=== PATIENT | male | born 1965 | race Caucasian/White ===

== ENCOUNTER 2021-01-03 05:36 | Emergency (ER) | payer SELFPAY ==
--- NOTE | ~2021-01-03 | XR_ITS ---
EXAMINATION: XR RIBS, LEFT CLINICAL INFORMATION: Left rib pain status post fall. COMPARISON: None TECHNIQUE: 3 views of the left ribs were obtained. A skin marker overlies the inferolateral left ribs. FINDINGS: Lungs are clear. No consolidation, pneumothorax, or pleural effusion. The cardiomediastinal silhouette and pulmonary vasculature are normal. There are nondisplaced oblique fractures of the anterolateral left seventh and eighth ribs. Probable old healed left lateral 11th rib fracture is noted. XR/XR ribs LT min 3V w CXR1V IMPRESSION: 1. Acute, nondisplaced oblique fractures of the anterolateral left seventh and eighth ribs. Additional, nondisplaced adjacent rib fractures cannot be excluded.
[2021-01-03 06:00] VITALS: BP 150/107; PULSE 89; RESP 18; TEMP 36.6; O2SAT 98; BMI 29.5
--- NOTE | 2021-01-03 07:30 | ED_ITS ---
HPI - Fall General Chief Complaint: Fall Stated Complaint: Fall/Rib pain Time Seen by Provider: 01/03/21 07:30 History of Present Illness HPI Narrative: Patient 55-year-old male presents today with having chest pain. Over the left lower rib area. Patient accidentally fell. The pain started right after. Patient slipped. Not on any blood thinners. Pain worsened with movement. No coughing or congestion or respiratory symptoms. No diaphoresis. No focal weakness. Related Data Previous Rx's Medication Instructions Recorded ibuprofen 400 mg tablet 400 mg PO Q6H PRN #20 tab 01/03/21 oxycodone-acetaminophen 5 mg-325 1 tab PO Q8H PRN #10 tab 01/03/21 mg tablet (Percocet) Allergies Allergy/AdvReac Type Severity Reaction Status Date / Time No Known Allergies Allergy Unverified 11/14/19 14:47 Review of Systems Review of Systems: Positive pain to the left lower rib No chest pain or shortness of breath No cough no congestion or upper respiratory symptoms Yes all other systems are reviewed and are negative [facility] Past Medical History Attestation statement: The following information was validated with the patient. Social History Social History Advance Directives: No Physical Exam Vital Signs: Vital Signs: Last Vital Signs Temp 97.9 F 01/03/21 06:00 Pulse 89 01/03/21 06:00 Resp 18 01/03/21 06:00 BP 150/107 H 01/03/21 06:00 Pulse Ox 98 01/03/21 06:00 Body Mass Index 29.5 Appearance: Alert. Oriented X3. No acute distress. Eyes: Pupils equal, round and reactive to light. ENT: Pharynx normal. Neck: Normal inspection. Neck supple. No lymph nodes noted. No crepitus CVS: Normal heart rate and rhythm. Pulses normal. Normal S1 and S2 Respiratory: No respiratory distress. Breath sounds normal. No Wheezing. No rales. Positive left lower rib tenderness there is no crepitus elicited on palpation Abdomen: Soft and nontender. No rigidity. No distention. good BS x4 Skin: Skin warm and dry. Normal skin color. Normal skin turgor. Extremities: No lower extremity edema. Neurovascular intact to all extremities. No Lacerations. No Rash Neuro: Oriented X 3. No motor deficit. No sensory deficit. Moving all extermities. No slurred speech MDM - Fall MDM Narrative Medical decision making narrative: X-ray showed 2 rib fractures. O2 sat 98% on room air. Pain is controlled with pain medication. Will give patient incentive spirometry. Pain medication as needed. Follow up closely on an outpatient basis. Discharge Plan Discharge Clinical Impression: Closed rib fracture Patient Disposition: Home, Self-Care Instructions: Rib Fracture (ED) Prescriptions: New ibuprofen 400 mg tablet 400 mg PO Q6H PRN (Reason: pain) Qty: 20 RF: 0 oxycodone-acetaminophen [Percocet] 5-325 mg tablet 1 tab PO Q8H PRN (Reason: pain) Qty: 10 RF: 0 Referrals: Physician,Unknown J [Primary Care Provider] - 2 days
[2021-01-03] MEDS: HYDROmorphone HCl 2 MG TABLET PO (08:30)
[2021-01-03 08:34] VITALS: BP 153/101; PULSE 80; RESP 20; O2SAT 97
== END 2021-01-03 08:46 | disposition home or self-care (01) ==
PROVIDERS: Emergency Provider Emergency Medicine Emergency Medical Services
DX: S22.42XA Multiple fractures of ribs, left side, initial encounter for closed fracture (principal); W01.0XXA Fall on same level from slipping, tripping and stumbling without subsequent striking against object, initial encounter; Y93.9 Activity, unspecified; Y92.9 Unspecified place or not applicable; Y99.9 Unspecified external cause status
CPT/HCPCS: 71101; 99283; 99284

== ENCOUNTER 2022-08-18 22:29 | Emergency (ER) | payer BC, OTHER, SELFPAY ==
[2022-08-18 22:33] VITALS: BP 160/110; PULSE 98; O2SAT 97
[2022-08-18 22:40] VITALS: BP 135/87; PULSE 89; RESP 20; O2SAT 100; BMI 22.4
[2022-08-18 23:19] LABS: Appearance Urine Clear; Color Urine Yellow; Glucose Urine UA Negative (Negative); Leukocyte Esterase Urine Negative (Negative); Nitrite Urine Negative (Negative); PH 5.5 (5.0-9.0); Urine Blood Negative (Negative); Urine Ketones Negative (Negative); Urine Protein Negative (Neg-Trace)
[2022-08-19 00:34] VITALS: BP 101/66; PULSE 74; RESP 17; TEMP 36.9; O2SAT 96
--- NOTE | 2022-08-19 01:04 | ED_ITS ---
HPI - Alcohol General Chief Complaint: ETOH/Substance Use Stated Complaint: ETOH Time Seen by Provider: 08/19/22 01:03 Source: patient Mode of arrival: EMS Limitations: other (Alcohol intoxication) History of Present Illness HPI narrative: 57-year-old male who was brought to the emergency department for evaluation of acute alcohol intoxication. At the time my evaluation the patient was intoxicated and was difficult to arouse. When he woke up he was agitated and fell back asleep. According to review coordinator notes the patient was yelling for help in his backyard he did report to the paramedics that he drink 1 L of vodka. He denied using drugs, he denied being suicidal or homicidal. Related Data Previous Rx's Medication Instructions Recorded ibuprofen 400 mg tablet 400 mg PO Q6H PRN pain #20 tabs 01/03/21 oxycodone-acetaminophen 5 mg-325 1 tab PO Q8H PRN pain #10 tabs 01/03/21 mg tablet (Percocet) Allergies Allergy/AdvReac Type Severity Reaction Status Date / Time No Known Allergies Allergy Verified 08/18/22 22:39 Review of Systems Review of Systems: Yes all other systems are reviewed and are negative [facility] Past Medical History [facility] Narrative: Past medical history: Alcohol use disorder, rib fractures Social History Social History Alcohol intake: current Alcohol intake frequency: 3 or more drinks per day Alcohol type: beer Smoked in Last 30 Days: Yes Use of substances other than those prescribed or required for medical reasons: No Advance Directives: No Advance Directives Information Provided: Yes Physical Exam ED Vital Signs: Vital Signs - 24 hr 08/18/22 22:40 08/19/22 00:34 08/19/22 03:52 Temperature 98.4 F 98.7 F Pulse Rate 89 74 71 Respiratory Rate 20 17 17 Blood Pressure 135/87 101/66 108/69 Pulse Oximetry 100 96 95 Oxygen Delivery Method Room Air Room Air Room Air 08/19/22 06:33 Temperature 98.1 F Pulse Rate 78 Respiratory Rate 17 Blood Pressure 129/80 Pulse Oximetry 95 Oxygen Delivery Method Room Air BMI result Body Mass Index 22.4 Vital signs were stable General: Acutely intoxicated male patient, somnolent but arousable HEENT: Head was normal cephalic atraumatic, pupils equal round reactive light, sclera contact however normal, mouth revealed moist membranes, strong odor of alcohol on his breath Neck: Supple, nontender Chest: No chest wall tenderness Lungs: Clear to auscultation breath sounds symmetric bilaterally Heart: Regular rate rhythm, normal S1-S2 Abdomen: Soft, nontender, nondistended Back: No CVA tenderness Extremities: No evidence of trauma Neuro: Nonfocal Medical Decision Making Medical Decision Making MDM Narrative: 57-year-old male who presents emergency department for evaluation of alcohol intoxication. Patient was somnolent but arousable was not able to give a history. His physical examination was consistent with acute alcohol i ntoxication. 0108: Start physician observation: The patient will be kept in the emergency department until he is sober and is able to walk without any difficulty. 0729: End physician observation: The patient is awake and alert. He states that he drink too much in this is happened to him before in the past. He states he is not interested in talking to a swimming coach or instructor. He has no complaints. Patient's examination was unremarkable. Patient will be discharged home. Differential Diagnosis Differential diagnosis includes was not limited to acute alcohol intoxication, acute drug use, electrolyte abnormality, closed head injury, Lab Data Labs: Lab Results 08/18/22 Range/Units 23:11 Urine Color Yellow Urine Appearance Clear Urine pH 5.5 (5.0-9.0) Ur Specific [place] 1.010 (1.005-1.025) Urine Protein Negative (Neg-Trace) mg/dL Urine Glucose (UA) Negative (Negative) mg/dL Urine Ketones Negative (Negative) mg/dL Urine Blood Negative (Negative) Urine Nitrite Negative (Negative) Ur Leukocyte Esterase Negative (Negative) Discharge Plan Discharge Clinical Impression: Alcoholic intoxication Patient Disposition: Home, Self-Care Instructions: Alcohol Intoxication (ED) Additional Instructions: Continue taking medications as prescribed by your providers. You should consider getting help with your alcohol use disorder Follow-up with your doctor in 2 days. Please return to the emergency department if your symptoms get worse or if you develop any symptoms that are concerning to you. Prescriptions: No Action ibuprofen 400 mg tablet 400 mg PO Q6H PRN (Reason: pain) Qty: 20 0RF oxycodone-acetaminophen [Percocet] 5-325 mg tablet 1 tab PO Q8H PRN (Reason: pain) Qty: 10 0RF
[2022-08-19 03:52] VITALS: BP 108/69; PULSE 71; RESP 17; TEMP 37.1; O2SAT 95
[2022-08-19 06:33] VITALS: BP 129/80; PULSE 78; RESP 17; TEMP 36.7; O2SAT 95
--- NOTE | 2022-08-19 06:52 | PC.NURSE ---
Resumed care of patient, he is currently resting in bed, all needs met. All safety measures in place at this time
--- NOTE | 2022-08-19 07:43 | PC.NURSE ---
Pt is a/ox4 this am, at this time has sobered up. Pt states he has multiple resources at home, but at this time is not interested. Education given. Pt reports he is going to take the bus home
== END 2022-08-19 07:44 | disposition home or self-care (01) ==
PROVIDERS: Emergency Provider Emergency Medicine Emergency Medical Services
DX: F10.129 Alcohol abuse with intoxication, unspecified (principal); Y90.9 Presence of alcohol in blood, level not specified; Z79.899 Other long term (current) drug therapy
CPT/HCPCS: 81003; 99284

== ENCOUNTER 2022-08-24 19:56 | Emergency (ER) | payer BC, SELFPAY ==
[2022-08-24 19:58] VITALS: BP 140/100; PULSE 88; O2SAT 100
[2022-08-24 20:01] VITALS: BP 121/74; PULSE 80; RESP 18; TEMP 36.2; O2SAT 98; BMI 23.1
--- NOTE | 2022-08-24 20:20 | ED_ITS ---
HPI - Alcohol General Chief Complaint: ETOH/Substance Use Stated Complaint: etoh Time Seen by Provider: 08/24/22 20:10 Source: patient and EMS Mode of arrival: EMS Limitations: no limitations History of Present Illness HPI narrative: Patient comes to the emergency room complaining of alcohol intoxication. According to EMS, the patient was picked up from his home. Patient has no electricity or running water in his apartment. Patient tearful on arrival, states that he has been drinking a lot the last few days, denies suicidal or homicidal ideation. Patient states that he has been feeling depressed, states t hat his of 40 years walked out on him in October of last year. Related Data Previous Rx's Medication Instructions Recorded ibuprofen 400 mg tablet 400 mg PO Q6H PRN pain #20 tabs 01/03/21 oxycodone-acetaminophen 5 mg-325 1 tab PO Q8H PRN pain #10 tabs 01/03/21 mg tablet (Percocet) Allergies Allergy/AdvReac Type Severity Reaction Status Date / Time No Known Allergies Allergy Verified 08/18/22 22:39 Review of Systems Review of Systems: Constitutional : No Weight loss, No Fever, No Chills, No Night Sweats, No Fatigue, No Malaise ENT/Mouth : No Hearing loss, No Ear Pain, No Nasal Congestion, No Sinus Pain, No Hoarseness, No sore throat, No Rhinorrhea, No Swallowing Difficulty Eyes: No Eye Pain, No Swelling, No Redness, No Foreign Body, No Discharge, No Vision Changes Cardiovascular : No Chest Pain, No SOB, No Dyspnea on Exertion, No Orthopnea, No Edema, No Palpitations Respiratory : No Cough, No Sputum, No Wheezing, No Smoke Exposure, No Dyspnea Gastrointestinal : No Nausea, No Vomiting, No Diarrhea, No Constipation, No abdominal Pain, No Hematochezia, No Melena Genitourinary : no irregular bleeding, No Dysuria, No Urinary Frequency, No Hematuria, No Urinary Incontinence, No Urgency, No Flank Pain, No Urinary Flow Changes, No Hesitancy Musculoskeletal : No joint pain, No Myalgias, No Joint Swelling Skin : No Skin Lesions, No rash Neuro : No Weakness, No Numbness, No Paresthesias, No Loss of Consciousness, No Dizziness, No Headache Psych : Complaining of anxiety, depression, no suicidal or homicidal ideation Heme/Lymph: No Bruising, No Bleeding,No Lymphadenopathy Endocrine : No Polyuria, No Polydipsia, No Temperature Intolerance [facility] Past Medical History Medical History Alcohol abuse Social History Social History Alcohol intake: current Alcohol intake frequency: 3 or more drinks per day Alcohol type: beer Physical Exam ED Vital Signs: Vital Signs - 24 hr 08/24/22 20:01 Temperature 97.2 F Pulse Rate 80 Respiratory Rate 18 Blood Pressure 121/74 Pulse Oximetry 98 Oxygen Delivery Method Room Air BMI result Body Mass Index 23.1 Const Other: Appearance: Alert. Oriented X3. No acute distress. Eyes: Pupils equal, round and reactive to light. ENT: Pharynx normal. Neck: Normal inspection. Neck supple. No lymph nodes noted. No crepitus CVS: Normal heart rate and rhythm. Pulses normal. Normal S1 and S2 Respiratory: No respiratory distress. Breath sounds normal. No Wheezing. No ra les Abdomen: Soft and nontender. No rigidity. No distention. Skin: Skin warm and dry. Normal skin color. Normal skin turgor. Extremities: No lower extremity edema. No Lacerations. No Rash Neuro: Oriented X 3. No motor deficit. No sensory deficit. Moving all extremities. No slurred speech. CN 2 through 12 grossly intact Psych: calm, cooperative, teary Course Course Course Narrative: -patient declining any workup, declined to talk to Behavioral Health. -patient is not homicidal or suicidal. Patient is not on a Section 12 -waiting for the patient to be sober and then to be discharged home, metabolized to freedom. Medical Decision Making Medical Decision Making [facility] Narrative: -once patient is sober, patient may be discharged home Differential Diagnosis Differential Diagnoses: The differential diagnosis associated with the presentation includes (Alcohol intoxication, drug abuse, depression, anxiety) Discharge Plan Discharge Clinical Impression: Alcoholic intoxication Patient Disposition: Still a Patient Prescriptions: No Action ibuprofen 400 mg tablet 400 mg PO Q6H PRN (Reason: pain) Qty: 20 0RF oxycodone-acetaminophen [Percocet] 5-325 mg tablet 1 tab PO Q8H PRN (Reason: pain) Qty: 10 0RF
--- NOTE | 2022-08-24 20:47 | PC.NURSE ---
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 pt denies SI/HI, reports that he has a daughter who lives in [facility], son in [place] and brother Mike who he hasn't spoke to for a while. pt has no means of transportation home.
--- NOTE | 2022-08-24 22:07 | PC.NURSE ---
pt sitting in bed eating pudding, vss, requesting nicotine patch, provider aware.
[2022-08-24 22:08] VITALS: BP 104/71; PULSE 90; RESP 18; O2SAT 96
[2022-08-24] MEDS: Nicotine 21 MG PATCH.TD24 TRANSDERMA (22:15)
[2022-08-25 07:50] VITALS: BP 124/83; PULSE 75; RESP 18; TEMP 35.7; O2SAT 99
== END 2022-08-25 08:07 | disposition home or self-care (01) ==
LOC: HO.ED 20:27
PROVIDERS: Emergency Provider Emergency Medicine
DX: F10.129 Alcohol abuse with intoxication, unspecified (principal); Y90.9 Presence of alcohol in blood, level not specified; Z79.899 Other long term (current) drug therapy
CPT/HCPCS: 99283; 99284

== ENCOUNTER 2023-01-14 09:39 | Outpatient (REF) | payer MEDICAID, SELFPAY ==
[2023-01-14 11:07] LABS: MANUAL DIFF FLAG NO
[2023-01-14 11:14] LABS: Basophils Absolute Auto 0.1 X10*3/uL (0.0-0.2); Basophils Percent Auto 1.2 % (0-2); Eosinophils Absolute Auto 0.1 X10*3/uL (0.0-0.4); Hematocrit 41.8 % (42.0-52.0); Imm Gran Abs Auto 0.01 X10*3/uL (0.00-0.03); Imm Gran Pct Auto 0.2 % (0.0-0.4); Lymphocytes Absolute Auto 1.3 X10*3/uL (1.2-4.9); Lymphocytes Percent Auto 25.2 % (20-40); Mean Corpuscular HGB Conc 33.5 g/dl (31.0-36.0); Mean Corpuscular Hemoglobin 31.3 pg (27.0-33.0); Mean Corpuscular Volume 93.3 fL (80.0-98.0); Mean Platelet Volume 9.9 fL (9.4-12.4); Monocytes Absolute Auto 0.7 X10*3/uL (0.1-1.2); Monocytes Percent Auto 13.1 % (2-11); Neutrophils Absolute Auto 2.9 x10*3/uL (2.0-8.3); Neutrophils Percent Auto 58.3 % (45-73); Platelet Count 212 X10*3/uL (160-400); Red Blood Count 4.48 X10*6/uL (4.60-5.80); Red Cell Distribution Width 11.3 % (11.0-16.0)
[2023-01-14 11:41] LABS: Alanine Aminotransferase 10 U/L (0-40); Albumin Level 4.4 g/dL (3.5-5.0); Alkaline Phosphatase 61 U/L (39-117); Anion Gap 11 (12-20); Aspartate Amino Transferase 17 U/L (5-37); Bilirubin Total 0.5 mg/dL (0.0-1.0); Blood Urea Nitrogen 14 mg/dL (9-16); Calcium 9.9 mg/dL (8.4-10.2); Carbon Dioxide 27 mmol/L (22-29); Chloride 107 mmol/L (96-108); Cholesterol 139 mg/dL (<200); Estimated Glomerular Filt Rate > 60; Glucose Random 91 mg/dL (60-115); HDL Cholesterol 43 mg/dL (>40); LDL Cholesterol Calculated 86 mg/dL (<100); Potassium 4.6 mmol/L (3.3-5.1); Sodium 140 mmol/L (135-145); Total Protein 7.5 g/dL (6.5-8.0); Triglycerides 53 mg/dL (<150)
[2023-01-14 11:43] LABS: Prostate Specific Antigen Scr 0.84 ng/mL (<0.05-4.0)
== END 2023-01-14 09:40 | disposition home or self-care (01) ==
LOC: HO.HMGCLDS 09:39
PROVIDERS: PCP Internal Medicine; Visit Provider Internal Medicine
DX: Z00.00 Encounter for general adult medical examination without abnormal findings (principal); Z12.5 Encounter for screening for malignant neoplasm of prostate; F10.11 Alcohol abuse, in remission; M23.91 Unspecified internal derangement of right knee; F17.201 Nicotine dependence, unspecified, in remission
CPT/HCPCS: 36415; 80053; 80061; 84153; 85025

== ENCOUNTER 2023-08-01 12:10 | Outpatient (REF) | payer MEDICAID, SELFPAY ==
[2023-08-01 13:55] LABS: C Reactive Protein 0.33 mg/dL (< or = 0.50)
[2023-08-01 14:02] LABS: Rheumatoid Factor < 13.0 IU/mL (<15.0)
[2023-08-01 14:25] LABS: Erythrocyte Sedimentation Rate 57 MM/HR (0-15)
[2023-08-02 18:43] LABS: Streptolysin O Antibody <20 IU/mL (<200)
[2023-08-03 20:03] LABS: Cyclic Citrullinated Peptide <16 UNITS
== END 2023-08-01 12:11 | disposition home or self-care (01) ==
LOC: HO.10HDL 12:10
PROVIDERS: Visit Provider Internal Medicine
DX: J02.0 Streptococcal pharyngitis (principal); M13.0 Polyarthritis, unspecified
CPT/HCPCS: 36415; 85652; 86060; 86140; 86200; 86431

== ENCOUNTER 2024-10-24 13:33 | Outpatient (REF) | payer MEDICAID, SELFPAY ==
--- OUTSIDE RECORDS SUMMARY | 2024-10-24 14:19 | XMS_ITS | Clinical Summary ---
Author Organization [facility] Address [address] [place] [address] Care Team Providers Care Iron Plastic Bullet Maker Name Role Phone Tracy Beard MD Primary Care Provider [phone] Medical History Medical History Date Comments Hx of arthroscopy of right knee 2009 DX:Hx of arthroscopy of right knee Alcohol related seizure (CMS /HCC V24, CMS/HCC V28) DX:Alcohol related seizure ( HCC) Social History Tobacco Use Types Packs/Day Years Used Date Smoking Tobacco: Never Assessed Sex and Gender Information Value Date Recorded Sex Assigned at Not on file Legal Sex Male 8:28 PM EST Gender Identity Not on file Sexual Orientation Not on file Obstetrics History Last Filed Vital Signs Vital Sign Reading Time Taken Comments Blood Pressure - - Pulse - - Temperature - - Respiratory Rate - - Oxygen Saturation - - Inhaled Oxygen Concentration - - Weight 81.6 kg (180 lb) 04/14/2023 9:16 AM EST Height 175.3 cm (5' 9 ) 04/14/2023 9:16 AM EST Body Mass Index 26.58 04/14/2023 9:16 AM EST Plan of Treatment Health Maintenance Due Date Last Done Comments DTaP,Tdap,and Td Vaccines (1 - Tdap) 1986 Hepatitis B Vaccines (1 of 3 - 19+ 3-dose series) 1986 Pneumococcal Vaccine: 50+ Ye ars (1 of 1 - PCV) 2017 Zoster Vaccines (1 of 2) 2017 Cholesterol Screening (Lipid Panel) 03/24/2023 Colorectal Cancer Screening: Colonoscopy 03/24/2023 HIV Screening 03/24/2023 Hepatitis C Screening 03/24/2023 Social Influencers of Health Screening 03/24/2023 COVID-19 Vaccine ( - 2023-2 5 season) 2023 Depression Screening 02/28/2024 Influenza Vaccine (#1) 2024 HIB Vaccines Aged Out No longer eligi ble based on patient's age to complete this topic HPV Vaccines Aged Out No longer eligi ble based on patient's age to complete this topic Hepatitis A Vaccines Aged Out No long er eligible based on patient's age to complete this topic IPV Vaccines Aged Out No longer eligi ble based on patient's age to complete this topic MMR Vaccines Aged Out No longer eligi ble based on patient's age to complete this topic Meningococcal ACWY Vaccine Aged Out N o longer eligible based on patient's age to complete this topic Meningococcal B Vaccine Aged Out No l onger eligible based on patient's age to complete this topic RSV Immunization Patients Un eric 20 months Aged Out No longer eligible b ased on patient's age to complete this topic Varicella Vaccines Aged Out No longer eligible based on patient's age to complete this topic Advance Directives Documents on File Type Date Recorded Patient Access Services Assistant Expl anation Health Care Decision (hx) 08/17/2022 AD [employer] DIRECTIVE Health Care Decision (hx) 08/17/2022 AD [employer]INA DIRECTIVE Health Care Decision (hx) 08/17/2022 AD MEDINA DIRECTIVE Health Care Decision (hx) 08/17/2022 AD MEDINA DIRECTIVE Health Care Decision (hx) 08/17/2022 AD [employer] DIRECTIVE Care Teams Iron Plastic Bullet Maker Relationship Specialty Start Date End Date Tracy Beard MD [address] [place] [address] Dr Harvey, [place] [address] PCP - General 03/23/23
[2024-10-24 16:07] LABS: Alanine Aminotransferase 76 U/L (0-40); Albumin Level 5.0 g/dL (3.5-5.0); Alkaline Phosphatase 75 U/L (39-117); Anion Gap 15 (12-20); Aspartate Amino Transferase 109 U/L (5-37); Blood Urea Nitrogen 17 mg/dL (9-16); Calcium 9.8 mg/dL (8.4-10.2); Carbon Dioxide 24 mmol/L (22-29); Chloride 103 mmol/L (96-108); Estimated Glomerular Filt Rate > 60; Potassium 3.5 mmol/L (3.3-5.1); Sodium 138 mmol/L (135-145); Total Protein 8.2 g/dL (6.5-8.0)
== END 2024-10-24 13:34 | disposition home or self-care (01) ==
LOC: HO.LAB 13:33
PROVIDERS: PCP Internal Medicine; Visit Provider Internal Medicine
DX: Z00.00 Encounter for general adult medical examination without abnormal findings (principal); F17.201 Nicotine dependence, unspecified, in remission; F32.9 Major depressive disorder, single episode, unspecified; N40.0 Benign prostatic hyperplasia without lower urinary tract symptoms; F10.988 Alcohol use, unspecified with other alcohol-induced disorder; M23.203 Derangement of unspecified medial meniscus due to old tear or injury, right knee; Z12.5 Encounter for screening for malignant neoplasm of prostate
CPT/HCPCS: 36415; 80053; 84153

== ENCOUNTER 2024-12-19 08:15 | Outpatient (REF) | payer MEDICAID, SELFPAY ==
--- NOTE | ~2024-12-19 | XR_ITS ---
CLINICAL HISTORY: M25.561 - Pain in right knee 3 view right knee Comparison: None provided Findings: No acute fracture or dislocation is identified. The femorotibial joint space is preserved. Soft tissue structures appear within normal limits. IMPRESSION: Negative radiographic examination of the right knee. This document has been electronically signed by: James Lassiter on 12/20/2024 10:23:13
== END 2024-12-19 08:16 | disposition home or self-care (01) ==
LOC: HO.HOSX 08:15
PROVIDERS: Visit Provider Orthopaedic Surgery
DX: S83.241A Other tear of medial meniscus, current injury, right knee, initial encounter (principal); M25.561 Pain in right knee
CPT/HCPCS: 73562; 99202

== ENCOUNTER 2024-12-19 09:57 | Outpatient (AMB) | payer MEDICAID, SELFPAY ==
--- NOTE | 2024-12-19 10:12 | MHC.OFFVIS ---
Intake Visit Reasons: Right knee pain and giving way Intake Note: John is a 59 year old male who presents with complaints of progressively worsening right knee pain and giving way. The patient describes his pain as sharp in nature. Most of the pain is along the anterior and medial aspects of his knee. His symptoms have gotten worse over the last year in spite of continued non operative treatments. He has tried Tylenol, anti-inflammatory medicines, physical therapy exercises and a home exercise program which gave him minimal relief. He states that his right knee will give out several times per day. Allergies No Known Allergies Allergy (Verified 12/19/24 10:16) Medication List - Last Reviewed 12/19/24 by REKHA Acevedo ibuprofen 400 mg PO Q6H PRN sertraline 50 mg PO DAILY PFSH Medical History Alcohol abuse Social History Alcohol intake: current Alcohol intake frequency: 3 or more drinks per day Alcohol type: beer and hard liquor Physical Exam Const Other: Well-nourished well-developed very friendly male awake alert and oriented x3 in no acute distress Extrem Other: Bilateral lower extremity examination shows good capillary refill, no skin lesions noted, normal sensation light touch Right knee examination shows a minimal effusion, mild crepitus with range of motion, tenderness along his medial joint line, positive Timbo's test, no instability Results Reviewed Results Reviewed: X-rays of the patient's right knee taken today show mild diffuse joint space narrowing, no acute bony abnormalities MRI of the patient's right knee shows mild diffuse degenerative changes as well as a tear of the medial meniscus, no acute bony abnormalities Assessment & Plan Assessment & Plan (1) Tear of medial meniscus of right knee: Code(s): S83.241A - Other tear of medial meniscus, current injury, right knee, initial encounter Category: Medical Plan Mr. Bonilla presents with right knee pain and mechanical symptoms due to a medial meniscus tear. I had a lengthy discussion with the patient regarding the treatment options. At this point he has failed continued non operative treatments. The risks and benefits of right knee arthroscopic surgery were discussed at length with the patient. The patient wishes to proceed with surgery. Surgery will involve right knee arthroscopic partial medial meniscectomy. He will be scheduled for next available date. He will follow up as instructed. Feel free to call me at any time should questions regarding his orthopedic management arise. Thank you very much for asking me to see this very friendly gentleman. I spent 22 minutes in reviewing the patient's records and imaging studies, seeing the patient and documenting in the medical record. Orders: Orders XR knee RT 3V Today M25.561 - Pain in right knee Coding Level of Care Code New Pt Level 3 (09087) Complex EM visit Add On G2211 Diagnoses Tear of medial meniscus of right knee S83.241A
--- OUTSIDE RECORDS SUMMARY | 2024-12-19 11:33 | XMS_ITS | Clinical Summary ---
Author Organization [facility] Address [address] [place] [address] Care Team Providers Care Software Test Engineer Name Role Phone Tracy Beard MD Primary Care Provider [phone] Medical History Medical History Date Comments Hx [...] Health Maintenance Due Date Last Done Comments Colorectal Cancer Screening: Colonoscopy 1967 DTaP,Tdap,and Td Vaccines (1 - Tdap) 1986 Hepatitis B Vaccines (1 of 3 - 19+ 3-dose series) 1986 Pneumococcal Vaccine: 50+ Ye ars (1 of 1 - PCV) 2017 Zoster Vaccines (1 of 2) 2017 Cholesterol Screening (Lipid Panel) 03/24/2023 HIV Screening 03/24/2023 Hepatitis C Screening 03/24/2023 Social Influencers of Health Screening 03/24/2023 Depression Screening 02/28/2024 COVID-19 Vaccine (2023-2 5 season) 2024 Influenza Vaccine (#1) 2024 RSV Immunization Adult Patie nts (1 - 1-dose 75+ series) 2042 HIB Vaccines Aged Out No longer eligi [...] Documents on File Type Date Recorded Patient Drying Oven Attendant Expl anation Health Care Decision (hx) 08/17/2022 AD [employer] DIRECTIVE Health Care Decision (hx) 08/17/2022 AD [employer] DIRECTIVE Health Care Decision (hx) 08/17/2022 AD MEDINA DIRECTIVE Health Care Decision (hx) 08/17/2022 AD MEDINA DIRECTIVE Health Care Decision (hx) 08/17/2022 AD [employer]INA DIRECTIVE Care Teams Software Test Engineer Relationship Specialty Start Date End Date Tracy Beard MD [address] [place] [address] Dr Harvey, [place] [address] PCP - General 03/23/23
== END 2024-12-19 10:32 | disposition home or self-care (01) ==
LOC: HO.HOS 09:57
PROVIDERS: PCP Internal Medicine; Visit Provider Orthopaedic Surgery
DX: S83.241A Other tear of medial meniscus, current injury, right knee, initial encounter (principal)
CPT/HCPCS: 99204

== ENCOUNTER → 2024-12-19 10:05 | Outpatient (BNV) | payer MEDICAID, SELFPAY | PROVIDERS: Visit Provider Radiology Vascular & Interventional Radiology | DX: M25.561 Pain in right knee (principal) | CPT/HCPCS: 73562 ==

== ENCOUNTER 2025-02-14 07:18 | Day surgery (SDC) | payer MEDICAID, SELFPAY ==
--- OUTSIDE RECORDS SUMMARY | 2025-02-10 19:47 | XMS_ITS | Clinical Summary ---
Author Organization [facility] Address [address] [place] [address] Care Team Providers Care Field Service Rep Name Role Phone Tracy Beard MD Primary Care Provider [phone] Medical History Medical History Date Comments Hx [...] on file Sexual Orientation Not on file Last Filed Vital Signs Vital Sign Reading [...] Screening 03/24/2023 Depression Screening 02/28/2024 COVID-19 Vaccine (1 - 2024-2 6 season) 2024 Influenza Vaccine (#1) 2024 RSV [...] Documents on File Type Date Recorded Patient Design Project Manager Expl anation Health Care Decision (hx) 08/17/2022 AD [employer] DIRECTIVE Health Care Decision (hx) 08/17/2022 AD [employer] DIRECTIVE Health Care Decision (hx) 08/17/2022 AD [employer]INA DIRECTIVE Health Care Decision (hx) 08/17/2022 AD [employer]INA DIRECTIVE Health Care Decision (hx) 08/17/2022 AD [employer] DIRECTIVE Care Teams Field Service Rep Relationship Specialty Start Date End Date Tracy Beard MD [address] [place] [address] Dr Harvey, [place] [address] PCP - General 03/23/23
--- OUTSIDE RECORDS SUMMARY | 2025-02-10 19:47 | XMS_ITS | Patient Health Record ---
Author Organization [facility] Address [address] [place] [address] Care Team Providers Care Conveyor Weigher Operator Name Role Phone NO, PCP Primary Care Provider [phone] Constance Vaca Unavailable [phone] Reason For Referral No Information Social History Sex Assigned At : Social History Observation Description Sex Assigned At Male Encounters Encounter Location Date Provider Diagnosis [facility] [address] [place] [address] 11/07/2024 Constance Vaca Plan Of Treatment No Information Insurance Providers Payer Name Payer Address Payer Phone Subscriber Number Group Number Insured Name Patient Relationship to Insured Coverage Start Date Coverage End Date Insurance Pending [address] [place] [id number] Tarun Bonilla Self - patient is the insured
[2025-02-11 08:41] VITALS: BMI 27.3
[2025-02-14 07:50] VITALS: BP 113/79; PULSE 76; RESP 16; TEMP 36.8; O2SAT 96; BMI 26.3
[2025-02-14] MEDS: Lactated Ringers 1,000 ML 100 ML IVCONT (07:52)
[2025-02-14 08:01] LABS: Hematocrit 37.5 % (42.0-52.0); Hemoglobin 13.3 g/dl (14.0-18.0); Mean Corpuscular HGB Conc 35.5 g/dl (31.0-36.0); Mean Corpuscular Hemoglobin 33.5 pg (27.0-33.0); Mean Corpuscular Volume 94.5 fL (80.0-98.0); NRBC Abs Auto 0.000 X10*3/uL (0.0-0.012); NRBC Pct Auto 0.0 /100WBC (0.0-0.2); Platelet Count 172 X10*3/uL (160-400); Red Blood Count 3.97 X10*6/uL (4.60-5.80); White Blood Count 6.3 X10*3/uL (4.8-10.8)
[2025-02-14 08:14] LABS: Alanine Aminotransferase 16 U/L (0-40); Albumin Level 4.7 g/dL (3.5-5.0); Alkaline Phosphatase 62 U/L (39-117); Anion Gap 14 (12-20); Aspartate Amino Transferase 24 U/L (5-37); Blood Urea Nitrogen 18 mg/dL (9-16); Calcium 9.5 mg/dL (8.4-10.2); Carbon Dioxide 17 mmol/L (22-29); Chloride 109 mmol/L (96-108); Creatinine Clr Calc Pharmacy 86.5; Estimated Glomerular Filt Rate > 60; Potassium 4.0 mmol/L (3.3-5.1); Sodium 136 mmol/L (135-145); Total Protein 7.5 g/dL (6.5-8.0)
--- NOTE | 2025-02-14 08:20 | HO.ANESPROP2 ---
Documented by User: Sofia Ortiz NP 02/11/25 09:52 HPI - Anesthesia Eval Consult details Narrative: 60 yr old male for right Knee Arthroscopy,with partial medial meniscectomy H/O ETOH abuse: no recent labs; DOS labs orderd. Nicotine dependence PMFSH Active Problems Active Problems: All Active Problems Tear of medial meniscus of right knee (Acute) Right knee pain (Acute) Alcohol abuse (Acute) Past Medical History Medical History Rheumatic fever Seizures Anxiety Depression Alcohol abuse Surgical History Surgical History (Updated 02/11/25 @ 08:30 by Tiffany Villasenor RN) H/O colonoscopy Hx of left knee surgery (~2004) Social History Social History Are you a primary medicare compliance auditor to a significant other at home: No Do you presently have visiting nurse or other home services: No Alcohol intake: current Alcohol intake frequency: other Alcohol type: beer and hard liquor Patient Tobacco Use Status: Current everyday Tobacco user Tobacco use type: Cigarette Cigarettes Per Day: 5 Use of substances other than those prescribed or required for medical reasons: Yes Substance Use Frequency: Occasionally Have you been hit, kicked, punched, or otherwise hurt by someone within the past year? If so, by whom?: No Are you DNR?: No Advance Directives: No Advance Directives Information Provided: Yes Advance Directives on File: No Meds Allergies Allergy/AdvReac Type Severity Reaction Status Date / Time No Known Allergies Allergy Verified 12/19/24 10:16 Active Medications: Current Medications Cefazolin Sodium/Dextrose (Ancef) 2 gm in 50 mls @ 100 mls/hr IV PREOP ONE Stop: 02/14/25 05:59 Home Medications ?Medication ?Instructions ?Recorded ?Confirmed ?Last Taken ?Type naproxen sodium 220 mg capsule 440 mg PO BID PRN Pain 02/11/25 02/11/25 Unknown History (Aleve) sertraline 100 mg tablet 100 mg PO DAILY 02/11/25 02/11/25 Unknown History Exam Height,Weight and Vital Signs: Height 5 ft 9 in Weight 83.915 kg Narrative Narrative: ECHO 06/2023 EKG 06/2023 Normal sinus rhythm, rate [address]-T wave changes Documented by User: Sandra Morillo DO 02/14/25 08:43 [facility] Past Medical History Medical History Rheumatic fever Seizures Anxiety Depression Alcohol abuse Family History Family history of problems with anesthesia: No Surgical History Surgical History (Updated 02/11/25 @ 08:30 by Tiffany Villasenor RN) H/O colonoscopy Hx of left knee surgery (~2004) History of Problems with Anesthesia: No Social History Social History Are you a primary medicare compliance auditor to a significant other at home: No Do you presently have visiting nurse or other home services: No Alcohol intake: current Alcohol intake frequency: other Alcohol type: beer and hard liquor Patient Tobacco Use Status: Current everyday Tobacco user Tobacco use type: Cigarette Cigarettes Per Day: 5 Use of substances other than those prescribed or required for medical reasons: Yes Substance Use Frequency: Occasionally Have you been hit, kicked, punched, or otherwise hurt by someone within the past year? If so, by whom?: No Are you DNR?: No Advance Directives: No Advance Directives Information Provided: Yes Advance Directives on File: No Meds Allergies Allergy/AdvReac Type Severity Reaction Status Date / Time No Known Allergies Allergy Verified 12/19/24 10:16 Home Medications ?Medication ?Instructions ?Recorded ?Confirmed ?Last Taken ?Type naproxen sodium 220 mg capsule 440 mg PO BID PRN Pain 02/11/25 02/11/25 Unknown History (Aleve) sertraline 100 mg tablet 100 mg PO DAILY 02/11/25 02/11/25 Unknown History Exam Exam Date and Time: 02/14/25 0820 Height,Weight and Vital Signs: Height 5 ft 9 in Weight 83.915 kg Vital Signs Temperature 98.3 F 02/14/25 07:50 Pulse Rate 76 02/14/25 07:50 Respiratory Rate 16 02/14/25 07:50 Blood Pressure 113/79 02/14/25 07:50 Pulse Oximetry 96 02/14/25 07:50 Oxygen Delivery Method Room Air 02/14/25 07:50 Temperature 98.3 F 02/14/25 07:50 Pulse Rate 76 02/14/25 07:50 Respiratory Rate 16 02/14/25 07:50 Blood Pressure 113/79 02/14/25 07:50 Pulse Oximetry 96 02/14/25 07:50 Oxygen Delivery Method Room Air 02/14/25 07:50 Airway Mallampati Class: II TM Dist: >3cm Neck ROM: Full Loose/Missing/Broken Teeth: Yes (several broken teeth) Heart: S1S2 Lungs: CTAB Assessment and Plan Assessment Anesthesia Assessment: Anesthesia Plan Discussed and Chart Reviewed Final Anesthetic Review Family History of Problems with Anesthesia: No History of Problems with Anesthesia: No NPO: Yes ASA Class: II Final Preanesthetic Review: No Changes in Pt Med Stat, Meds/Allgs Chart Reviewed, Consent Obtained/Reviewed and Anes Risks/Benef Reviewed Patient Risk: Low Procedure Risk: Low Anesthetic Plan Anesthetic Plan: GA and Agree w/ Assess. and Plan Disposition: Standard PACU
[2025-02-14 09:28] VITALS: BP 107/70; PULSE 68; RESP 15; TEMP 36.7; O2SAT 99
[2025-02-14 09:33] VITALS: BP 112/72; PULSE 65; RESP 19; O2SAT 99
[2025-02-14 09:38] VITALS: BP 112/75; PULSE 64; RESP 18; O2SAT 99
[2025-02-14 09:43] VITALS: BP 107/67; PULSE 89; RESP 14; O2SAT 97
[2025-02-14 09:58] VITALS: BP 122/85; PULSE 83; RESP 16; TEMP 36.3; O2SAT 96
--- NOTE | 2025-02-14 12:36 | P.BOP_ITS ---
Brief Operative Note Date of Service: 02/14/25 Pre-op diagnosis: Right knee medial meniscus tear, right knee degenerative joint disease Post-op diagnosis: same Procedure: Right knee arthroscopic partial medial meniscectomy, right knee arthroscopic chondroplasty of the undersurface of the patella as well as the medial femoral condyle Implants: None Surgeon: Molina Stinson MD Anesthesia: GLMA Was an Associate Professor Of Biology used for this Procedure?: No Estimated blood loss (mL): 10 Pathology: none sent Condition: stable Disposition: PACU
--- NOTE | 2025-02-14 12:37 | W.PM.OPN ---
Operative Note Operative Note Date of Service: 02/14/25 Narrative: After the patient was identified as Tarun Bonilla and his right knee was initialed by myself they were brought to the operating room where general anesthesia was induced by the anesthesiologist in routine fashion. The patient was given 2 g of IV Ancef for infection prophylaxis. A formal time-out was completed. The patient's right lower extremity was prepped and draped in sterile fashion. Marcaine with epinephrine was injected into the planned incision sites as well as their right knee joint. A # 11 scalpel blade was used to make an anterolateral portal 1 cm proximal to the joint line and 1 cm lateral to the patellar tendon. Blunt trocar technique was used into the suprapatellar pouch with the knee in extension. Diagnostic arthroscopy showed multiple bands of thickened plica which would be excised at the end of the procedure. There were no loose bodies or abnormalities found in either the medial or lateral gutters. There were diffuse grades 1 and 2 degenerative changes of the undersurface of the patella as well as grades 1 and 2 degenerative changes of the trochlear groove. The patient's knee was flexed to 45 degrees and a valgus force was placed upon it. The medial compartment was entered. An anteromedial portal was made 1 cm proximal to the joint line and 1 cm medial to the patellar tendon. Probing of the medial meniscus showed a radial tear of the posterior horn. A partial medial meniscectomy was performed using the arthroscopic shaver. Following the partial meniscectomy the remainder of the meniscus tissue was stable. There were diffuse grades 1 and 2 degenerative changes of the medial femoral condyle as well as diffuse grades 1 and 2 degenerative changes of the medial tibial plateau. The articular surface of the medial femoral condyle was made smooth using the arthroscopic shaver. The articular surface of the medial tibial plateau was already smooth so no chondroplasty was indicated. The patient's knee was then placed into a neutral position. There was no injury to the anterior cruciate ligament. The patient's knee was then placed into the figure of 4 position and the lateral compartment was entered. There were minimal degenerative changes of the lateral femoral condyle and lateral tibial plateau. There was no evidence of lateral meniscus tearing. The patient's knee was once again brought into extension and the suprapatellar pouch was entered. The arthroscopic shaver and the ArthroCare Wand were used to excise the thickened bands of plica. The undersurface of the patella was then made smooth using the arthroscopic shaver. The articular surface of the trochlear groove was already smooth so no chondroplasty was indicated. The knee joint was irrigated and then drained. All arthroscopic instruments were removed. The 2 portals were closed with 3-0 nylon interrupted suture. The knee joint was injected with Marcaine. Dry sterile dressing and Deejay bandages were placed over the patient's knee. The patient was awoken and extubated in the operating room. They were transferred to the recovery room in stable condition.
== END 2025-02-14 10:38 | disposition home or self-care (01) ==
PROVIDERS: Nurse Practitioner; Visit Provider Orthopaedic Surgery
PROC: (CPT 29870; principal; 2025-02-14 08:30)
DX: S83.241A Other tear of medial meniscus, current injury, right knee, initial encounter (principal); M17.11 Unilateral primary osteoarthritis, right knee; M25.561 Pain in right knee; M23.51 Chronic instability of knee, right knee; M67.51 Plica syndrome, right knee; X58.XXXA Exposure to other specified factors, initial encounter; Y93.9 Activity, unspecified; Y92.9 Unspecified place or not applicable; Y99.9 Unspecified external cause status; F10.10 Alcohol abuse, uncomplicated; Z79.1 Long term (current) use of non-steroidal anti-inflammatories (NSAID); Z79.899 Other long term (current) drug therapy
CPT/HCPCS: 29881; 36415; 80053; 85027; J0131; J0165; J0690; J0696; J1100; J1885; J2003; J2250; J2405; J2704; J2795; J3010

== ENCOUNTER → 2025-02-14 07:18 | Outpatient (BNV) | payer MEDICAID, SELFPAY | PROVIDERS: Visit Provider Orthopaedic Surgery | DX: S83.241A Other tear of medial meniscus, current injury, right knee, initial encounter (principal) | CPT/HCPCS: 29881 ==